=== PATIENT | male | born 1990 | race Hispanic/Latino ===

== ENCOUNTER 2022-11-15 19:20 | Inpatient (IN) | payer OTHER ==
[~2022-11-15] VITALS: Ht 160 cm; Wt 150.0 kg
[2022-11-15 23:34] LABS: BASOPHILS # (AUTO) 0.04 K/uL (0.00-0.20); BASOPHILS % (AUTO) 0.3 % (0.0-5.0); EOSINOPHILS # (AUTO) 0.22 K/uL (0.00-0.70); EOSINOPHILS % (AUTO) 1.5 % (0.0-8.0); HEMATOCRIT 45.2 % (42-54); IMMATURE GRANULOCYTE ABSOLUTE 0.09 K/uL (0-1); LYMPHOCYTES # (AUTO) 2.1 K/uL (1.0-4.8); LYMPHOCYTES % (AUTO) 14.2 % (21.0-51.0); MEAN CORPUSCULAR HGB CONC 35.8 g/dL (32.0-36.0); MEAN CORPUSCULAR VOLUME 86.4 fL (79-99); MONOCYTES # (AUTO) 1.2 K/uL (0.1-1.0); MONOCYTES % (AUTO) 8.2 % (3.0-13.0); NEUTROPHILS # (AUTO) 10.9 K/uL (1.8-7.7); NEUTROPHILS % (AUTO) 75.2 % (40.0-77.0); PLATELET COUNT (AUTO) 257 K/uL (130-400); RED BLOOD CELL COUNT(AUTO) 5.23 MIL/uL (4.50-6.20); RED CELL DISTRIBUTION WIDTH 13.2 % (11.0-15.5); WHITE BLOOD COUNT (AUTO) 14.5 K/uL (4.8-10.8)
[2022-11-15 23:54] LABS: CREATININE 0.9 mg/dL (0.5-1.5); POTASSIUM 3.8 mmol/L (3.5-5.1)
[2022-11-15 23:59] LABS: ALBUMIN 3.3 g/dL (3.5-5.0); BILIRUBIN,TOTAL 0.9 mg/dL (0.2-1.0)
[2022-11-16] VITALS (28 sets, daily range): BP systolic 127–157; BP diastolic 74–94; PULSE 77–104; RESP 16–21; O2SAT 100
[2022-11-16 00:16] LABS: APPEARANCE,URINE CLEAR (CLEAR); BILIRUBIN,URINE NEGATIVE (NEGATIVE); COLOR,URINE LIGHT-YELLOW (YELLOW); GLUCOSE, URINE (UA) >=1000 mg/dL (NEGATIVE); KETONES,URINE 150 mg/dL (NEGATIVE); LEUKOCYTE ESTERASE ,URINE NEGATIVE Leu/uL (NEGATIVE); NITRATE,URINE NEGATIVE (NEGATIVE); OCCULT BLOOD,URINE NEGATIVE (NEGATIVE); PROTEIN,URINE NEGATIVE (NEGATIVE); UROBILINOGEN,URINE 0.2 mg/dL (0.2-1.0)
[2022-11-16 00:17] LABS: ADD UA MICROSCOPIC YES; MUCUS,URINE RARE LPF (None Seen); RBC,URINE 0-1 /HPF (0-1); SQUAMOUS EPITHELIAL CELL,UR RARE /HPF (0-2); WBC,URINE 0-1 /HPF (0-1)
[2022-11-16] MEDS ORDERED: VANCOMYCIN KIT 1 GM/250 ML IV.KIT IV ONE (00:30)
[2022-11-16] MEDS ORDERED: ZOSYN 3.375GM +NS 50ML IVPB ONE (00:30)
[2022-11-16] MEDS ORDERED: 0.9%NACL 1000ML 1,000 ML IV ONE (00:30)
[2022-11-16 01:14] LABS: INR 0.97 (0.85-1.15); PROTHROMBIN TIME 11.3 SEC (9.6-11.6)
[2022-11-16 01:15] LABS: PARTIAL THROMBOPLASTIN TIME 31.3 SEC (26.3-35.5)
[2022-11-16] MEDS ORDERED: LACTULOSE 20 GM/30 ML UDCUP PO PRN (02:00)
[2022-11-16] MEDS ORDERED: VANCOMYCIN 1G/250ML KIT 250 ML IV SCH (02:00)
[2022-11-16] MEDS ORDERED: ONDANSETRON 4MG INJ IV PRN (02:00)
[2022-11-16] MEDS ORDERED: ACETAMINOPHEN 325 MG TAB PO PRN ×2 (02:00)
[2022-11-16] MEDS ORDERED: VANCOMYCIN PROTOCOL PER PHARMACY IV SCH (02:00)
[2022-11-16] MEDS: 0.9%NACL 1000ML 1,000 ML IV SCH ×2 (02:16→21:43)
[2022-11-16] MEDS: ZOSYN 3.375GM+NS 50ML 50 ML IVPB SCH ×3 (04:02→21:43)
[2022-11-16] MEDS: FAMOTIDINE 20MG VIAL IV SCH ×2 (08:47→21:43)
[2022-11-16 08:52] LABS: BASOPHILS # (AUTO) 0.04 K/uL (0.00-0.20); BASOPHILS % (AUTO) 0.3 % (0.0-5.0); EOSINOPHILS # (AUTO) 0.26 K/uL (0.00-0.70); EOSINOPHILS % (AUTO) 2.2 % (0.0-8.0); HEMATOCRIT 39.8 % (42-54); IMMATURE GRANULOCYTE ABSOLUTE 0.07 K/uL (0-1); LYMPHOCYTES # (AUTO) 2.4 K/uL (1.0-4.8); MEAN CORPUSCULAR HEMOGLOBIN 31.5 pg (27.0-33.0); MEAN CORPUSCULAR HGB CONC 36.4 g/dL (32.0-36.0); MEAN CORPUSCULAR VOLUME 86.5 fL (79-99); MONOCYTES # (AUTO) 1.3 K/uL (0.1-1.0); MONOCYTES % (AUTO) 11.2 % (3.0-13.0); NEUTROPHILS # (AUTO) 7.7 K/uL (1.8-7.7); NEUTROPHILS % (AUTO) 65.7 % (40.0-77.0); PLATELET COUNT (AUTO) 258 K/uL (130-400); RED CELL DISTRIBUTION WIDTH 13.2 % (11.0-15.5); WHITE BLOOD COUNT (AUTO) 11.8 K/uL (4.8-10.8)
[2022-11-16 09:08] LABS: ALBUMIN 2.8 g/dL (3.5-5.0); BILIRUBIN,TOTAL 0.8 mg/dL (0.2-1.0); CREATININE 0.7 mg/dL (0.5-1.5); POTASSIUM 3.8 mmol/L (3.5-5.1); TOTAL PROTEIN, SERUM 6.9 g/dL (6.0-8.3)
[2022-11-16] MEDS ORDERED: VANCOMYCIN 2GM/500 ML BAG 500 ML IV SCH (11:00)
[2022-11-16] MEDS ORDERED: PROPOFOL 10 MG/ML 20ML VIAL IV ONE ×2 (13:34→14:21)
[2022-11-16] MEDS ORDERED: LIDOCAINE PF 100MG/5ML (2%) SYRINGE 5ML ONE (13:34)
[2022-11-16] MEDS ORDERED: FENTANYL CITRATE PF 50 MCG/1 ML 2ML VIAL ONE (13:35)
[2022-11-16] MEDS ORDERED: GLYCOPYRROLATE 1 MG/5 ML SYRINGE ONE (13:35)
[2022-11-16] MEDS ORDERED: ROCURONIUM 10MG/1ML SYR 10 MG/ML ML ONE (13:35)
[2022-11-16] MEDS ORDERED: SUCCINYLCHOLINE 200MG/10ML SYR ONE (13:44)
[2022-11-16] MEDS ORDERED: MIDAZOLAM HCL 1 MG/ML 2ML VIAL ONE (13:47)
[2022-11-16] MEDS ORDERED: NEOSTIGMINE 5MG/5ML SYR IV ONE (14:25)
[2022-11-16] MEDS ORDERED: ONDANSETRON 4MG INJ ONE (14:35)
[2022-11-17 04:01] VITALS: BP 142/69; PULSE 94; RESP 19
[2022-11-17] MEDS: ZOSYN 3.375GM+NS 50ML 50 ML IVPB SCH ×3 (04:56→20:25)
[2022-11-17 08:00] VITALS: BP 124/81; PULSE 89; RESP 20; O2SAT 96
[2022-11-17] MEDS: 0.9%NACL 1000ML 1,000 ML IV SCH ×2 (08:00→18:00)
[2022-11-17] MEDS: FAMOTIDINE 20MG VIAL IV SCH ×2 (08:42→20:25)
[2022-11-17 09:57] LABS: BASOPHILS # (AUTO) 0.03 K/uL (0.00-0.20); BASOPHILS % (AUTO) 0.3 % (0.0-5.0); EOSINOPHILS # (AUTO) 0.28 K/uL (0.00-0.70); EOSINOPHILS % (AUTO) 2.7 % (0.0-8.0); HEMATOCRIT 38.9 % (42-54); IMMATURE GRANULOCYTE ABSOLUTE 0.09 K/uL (0-1); LYMPHOCYTES % (AUTO) 19.9 % (21.0-51.0); MEAN CORPUSCULAR HEMOGLOBIN 31.1 pg (27.0-33.0); MEAN CORPUSCULAR HGB CONC 35.7 g/dL (32.0-36.0); MONOCYTES # (AUTO) 1.1 K/uL (0.1-1.0); MONOCYTES % (AUTO) 10.4 % (3.0-13.0); NEUTROPHILS # (AUTO) 6.7 K/uL (1.8-7.7); NEUTROPHILS % (AUTO) 65.8 % (40.0-77.0); PLATELET COUNT (AUTO) 259 K/uL (130-400); RED BLOOD CELL COUNT(AUTO) 4.47 MIL/uL (4.50-6.20); RED CELL DISTRIBUTION WIDTH 13.3 % (11.0-15.5); WHITE BLOOD COUNT (AUTO) 10.2 K/uL (4.8-10.8)
[2022-11-17 10:07] LABS: CREATININE 0.7 mg/dL (0.5-1.5); POTASSIUM 3.5 mmol/L (3.5-5.1)
[2022-11-17 10:13] LABS: ALBUMIN 2.5 g/dL (3.5-5.0); BILIRUBIN,TOTAL 0.9 mg/dL (0.2-1.0)
[2022-11-17 12:00] VITALS: BP 135/77; PULSE 95; RESP 20
[2022-11-17] MEDS ORDERED: VANCOMYCIN 2GM/500 ML BAG 500 ML IV ONE (12:30)
[2022-11-17] MEDS ORDERED: VANCOMYCIN PROTOCOL PER PHARMACY IV SCH (12:30)
[2022-11-17 13:49] LABS: HEMOGLOBIN A1C 12.1 % (4.0-6.0)
[2022-11-17] MEDS ORDERED: POTASSIUM CHLORIDE 20MEQ/100ML 100 ML IV PRN (14:30)
[2022-11-17] MEDS ORDERED: GLUCAGON 1MG KIT 1 MG ML IM PRN (14:30)
[2022-11-17] MEDS ORDERED: DEXTROSE 50%-WATER 50 ML DISP.SYRIN IV PRN (14:30)
[2022-11-17] MEDS ORDERED: MAGNESIUM 2GM PREMIX 50ML 50 ML IV PRN (14:30)
[2022-11-17] MEDS ORDERED: POTASSIUM CHLORIDE 10% ELIXIR 20 MEQ/15 ML UDCUP PO PRN (14:30)
[2022-11-17 16:00] VITALS: BP 122/72; PULSE 90; RESP 20
[2022-11-17] MEDS: KCL 20 MEQ ERTAB PO PRN ×3 (16:38→20:25)
[2022-11-17] MEDS: INSULIN HUMULIN R 100 UNIT/ML 3ML SQ SCH ×3 (17:01→21:26)
[2022-11-17 20:00] VITALS: BP 152/94; PULSE 103; RESP 16; O2SAT 96
[2022-11-17] MEDS: VANCOMYCIN 1.25 GM/250 ML BAG 250 ML IV SCH (20:25)
[2022-11-17] MEDS: MORPHINE 2 MG SYG IV PRN (22:26)
[2022-11-17] MEDS ORDERED: VANCOMYCIN 1.25 GM/250 ML BAG 250 ML IV SCH (23:00)
[2022-11-18] VITALS (7 sets, daily range): BP systolic 104–141; BP diastolic 79–95; PULSE 75–94; RESP 18–20; O2SAT 97–98
[2022-11-18] MEDS: NYSTATIN 15 GM POWDER TP SCH ×3 (00:54→19:47)
[2022-11-18] MEDS: VANCOMYCIN 1.25 GM/250 ML BAG 250 ML IV SCH ×3 (04:24→19:47)
[2022-11-18] MEDS: ZOSYN 3.375GM+NS 50ML 50 ML IVPB SCH ×3 (04:25→19:47)
[2022-11-18] MEDS: 0.9%NACL 1000ML 1,000 ML IV SCH ×3 (04:25→23:13)
[2022-11-18 05:24] LABS: BASOPHILS # (AUTO) 0.04 K/uL (0.00-0.20); BASOPHILS % (AUTO) 0.4 % (0.0-5.0); EOSINOPHILS # (AUTO) 0.33 K/uL (0.00-0.70); EOSINOPHILS % (AUTO) 3.3 % (0.0-8.0); HEMATOCRIT 36.6 % (42-54); IMMATURE GRANULOCYTE ABSOLUTE 0.08 K/uL (0-1); LYMPHOCYTES # (AUTO) 2.8 K/uL (1.0-4.8); MEAN CORPUSCULAR HEMOGLOBIN 31.5 pg (27.0-33.0); MEAN CORPUSCULAR HGB CONC 36.9 g/dL (32.0-36.0); MEAN CORPUSCULAR VOLUME 85.5 fL (79-99); MONOCYTES % (AUTO) 10.5 % (3.0-13.0); NEUTROPHILS # (AUTO) 5.7 K/uL (1.8-7.7); PLATELET COUNT (AUTO) 275 K/uL (130-400); RED BLOOD CELL COUNT(AUTO) 4.28 MIL/uL (4.50-6.20); RED CELL DISTRIBUTION WIDTH 13.2 % (11.0-15.5); WHITE BLOOD COUNT (AUTO) 9.9 K/uL (4.8-10.8)
[2022-11-18] MEDS: INSULIN HUMULIN R 100 UNIT/ML 3ML SQ SCH ×7 (06:21→20:39)
[2022-11-18 06:41] LABS: ALBUMIN 2.3 g/dL (3.5-5.0); BILIRUBIN,TOTAL 0.5 mg/dL (0.2-1.0); CREATININE 0.6 mg/dL (0.5-1.5); POTASSIUM 3.3 mmol/L (3.5-5.1); TOTAL PROTEIN, SERUM 6.2 g/dL (6.0-8.3)
[2022-11-18] MEDS: KCL 20 MEQ ERTAB PO PRN ×3 (06:49→15:56)
[2022-11-18] MEDS: FAMOTIDINE 20MG VIAL IV SCH ×2 (08:01→19:47)
[2022-11-18] MEDS ORDERED: LISINOPRIL 5 MG TABLET PO ONE ×2 (09:00→12:30)
[2022-11-18] MEDS: MORPHINE 2 MG SYG IV PRN (17:46)
[2022-11-18] MEDS ORDERED: INSULIN GLARGINE 100 UNITS/ML 10 ML VIAL SQ SCH (21:00)
[2022-11-19] VITALS: BP 138/78; PULSE 94; RESP 20
[2022-11-19] MEDS: ZOSYN 3.375GM+NS 50ML 50 ML IVPB SCH ×2 (03:44→13:25)
[2022-11-19] MEDS: VANCOMYCIN 1.25 GM/250 ML BAG 250 ML IV SCH (03:44)
[2022-11-19 04:00] VITALS: BP 126/70; PULSE 79; RESP 18
[2022-11-19] MEDS: INSULIN HUMULIN R 100 UNIT/ML 3ML SQ SCH ×6 (05:26→16:52)
[2022-11-19 08:00] VITALS: BP 125/77; PULSE 82; RESP 20
[2022-11-19] MEDS ORDERED: NYSTATIN 15 GM POWDER TP SCH (09:00)
[2022-11-19] MEDS ORDERED: LISINOPRIL 5 MG TABLET PO SCH (09:00)
[2022-11-19] MEDS: 0.9%NACL 1000ML 1,000 ML IV SCH (10:00)
[2022-11-19] MEDS: FAMOTIDINE 20MG VIAL IV SCH (10:17)
[2022-11-19 11:39] LABS: BASOPHILS # (AUTO) 0.03 K/uL (0.00-0.20); BASOPHILS % (AUTO) 0.4 % (0.0-5.0); EOSINOPHILS # (AUTO) 0.33 K/uL (0.00-0.70); EOSINOPHILS % (AUTO) 3.9 % (0.0-8.0); HEMATOCRIT 38.2 % (42-54); IMMATURE GRANULOCYTE ABSOLUTE 0.04 K/uL (0-1); LYMPHOCYTES % (AUTO) 24.2 % (21.0-51.0); MEAN CORPUSCULAR HEMOGLOBIN 31.2 pg (27.0-33.0); MEAN CORPUSCULAR HGB CONC 36.4 g/dL (32.0-36.0); MEAN CORPUSCULAR VOLUME 85.8 fL (79-99); MONOCYTES # (AUTO) 0.8 K/uL (0.1-1.0); MONOCYTES % (AUTO) 9.5 % (3.0-13.0); NEUTROPHILS # (AUTO) 5.2 K/uL (1.8-7.7); NEUTROPHILS % (AUTO) 61.5 % (40.0-77.0); PLATELET COUNT (AUTO) 312 K/uL (130-400); RED BLOOD CELL COUNT(AUTO) 4.45 MIL/uL (4.50-6.20); RED CELL DISTRIBUTION WIDTH 13.3 % (11.0-15.5); WHITE BLOOD COUNT (AUTO) 8.4 K/uL (4.8-10.8)
[2022-11-19 12:00] VITALS: BP 134/86; PULSE 84; RESP 20
[2022-11-19] MEDS ORDERED: CEPH500T PO (12:05)
[2022-11-19] MEDS ORDERED: LISI5TAB21 PO (12:05)
[2022-11-19] MEDS ORDERED: INSLAN SQ (12:05)
[2022-11-19] MEDS ORDERED: ATOR10 PO (12:05)
[2022-11-19] MEDS ORDERED: METF-446 PO (12:05)
[2022-11-19] MEDS ORDERED: VANCOMYCIN 1.5 GM/250 ML BAG 250 ML IV SCH (13:00)
[2022-11-19 13:22] LABS: ALBUMIN 2.5 g/dL (3.5-5.0); BILIRUBIN,TOTAL 0.5 mg/dL (0.2-1.0); CREATININE 0.6 mg/dL (0.5-1.5); POTASSIUM 3.6 mmol/L (3.5-5.1); TOTAL PROTEIN, SERUM 6.5 g/dL (6.0-8.3)
[2022-11-19 16:00] VITALS: BP 139/69; PULSE 82; RESP 20
== END 2022-11-19 19:30 | disposition home or self-care (01) | DRG 574 ==
LOC: EDH 19:20 → EDHIP 19:21 → 4DH 11-16 04:09
PROVIDERS: ADMIT Hospitalist; ATTEND Hospitalist
PROC: 0YBD0ZZ Excision of Left Upper Leg, Open Approach (ICD-10-PCS; 2022-11-16)
PROC: 0Y9D0ZZ Drainage of Left Upper Leg, Open Approach (ICD-10-PCS; principal; 2022-11-16 13:45)
DX: L03.116 Cellulitis of left lower limb (principal); Z68.43 Body mass index [BMI] 50.0-59.9, adult; E11.51 Type 2 diabetes mellitus with diabetic peripheral angiopathy without gangrene; E66.01 Morbid (severe) obesity due to excess calories; S71.152A Open bite, left thigh, initial encounter; W64.XXXA Exposure to other animate mechanical forces, initial encounter; Y93.89 Activity, other specified; Y92.89 Other specified places as the place of occurrence of the external cause; Y99.8 Other external cause status
CPT/HCPCS: 36415; 71045; 73700; 80053; 80061; 80202; 81001; 82948; 83036; 83605; 85025; 85610; 85730; 87040; 87070; 87076; 87205; A6266; G0378; J0330; J1815; J2001; J2250; J2270; J2405; J2543; J2704; J2710; J3010; J3370; J3490; J7030; 3370; A4216; A4222; A4223; A4452

== ENCOUNTER → 2022-11-30 | Outpatient (CLI) | payer OTHER ==
[~2022-11-30] MED LIST: ATOR10 PO; CEPH500T PO; INSLAN SQ; LISI5TAB21 PO; METF-446 PO
== END | disposition home or self-care (01) ==
LOC: WHH 08:08
PROVIDERS: ATTEND Nurse Practitioner Family
DX: L02.416 Cutaneous abscess of left lower limb (principal); S81.802A Unspecified open wound, left lower leg, initial encounter; E11.622 Type 2 diabetes mellitus with other skin ulcer; L97.822 Non-pressure chronic ulcer of other part of left lower leg with fat layer exposed; E11.51 Type 2 diabetes mellitus with diabetic peripheral angiopathy without gangrene; E66.01 Morbid (severe) obesity due to excess calories; Z68.43 Body mass index [BMI] 50.0-59.9, adult; Z79.4 Long term (current) use of insulin; Z79.84 Long term (current) use of oral hypoglycemic drugs; Z79.899 Other long term (current) drug therapy; X58.XXXA Exposure to other specified factors, initial encounter; Y93.89 Activity, other specified; Y92.89 Other specified places as the place of occurrence of the external cause; Y99.8 Other external cause status
CPT/HCPCS: 99214; A6248; A4450

== ENCOUNTER → 2022-12-07 | Outpatient (CLI) | payer OTHER ==
[~2022-12-07] MED LIST changes: +LIDOCAINE HCL 4% LTA SOL 4 ML VIAL TP ONE
== END | disposition home or self-care (01) ==
LOC: WHH 08:02
PROVIDERS: ATTEND Nurse Practitioner Family
DX: L02.416 Cutaneous abscess of left lower limb (principal); S81.802D Unspecified open wound, left lower leg, subsequent encounter; E11.622 Type 2 diabetes mellitus with other skin ulcer; L97.822 Non-pressure chronic ulcer of other part of left lower leg with fat layer exposed; E11.51 Type 2 diabetes mellitus with diabetic peripheral angiopathy without gangrene; E66.01 Morbid (severe) obesity due to excess calories; Z68.43 Body mass index [BMI] 50.0-59.9, adult; Z79.84 Long term (current) use of oral hypoglycemic drugs; Z79.4 Long term (current) use of insulin; Z79.899 Other long term (current) drug therapy; X58.XXXD Exposure to other specified factors, subsequent encounter
CPT/HCPCS: 99214; A4450